=== PATIENT | female | born 2000 | race African-American/Black ===

== ENCOUNTER 2023-01-14 13:55 | Emergency (ER) | payer MEDICAID ==
[~2023-01-14] VITALS: Ht 172.7 cm; Wt 118.0 kg
[2023-01-14 14:06] VITALS: BP 119/79; PULSE 61; RESP 20; TEMP 98.2; O2SAT 100
[2023-01-14] MEDS ORDERED: EFIN4SOL TP (14:17)
[2023-01-14] MEDS ORDERED: GUAI-948 MT (14:17)
== END 2023-01-14 15:02 | disposition home or self-care (01) ==
LOC: ER 13:55
DX: B35.1 Tinea unguium (principal); B34.9 Viral infection, unspecified
CPT/HCPCS: 99283

== ENCOUNTER 2023-07-14 02:16 | Emergency (ER) | payer MEDICAID ==
[~2023-07-14] VITALS: Ht 172.7 cm; Wt 117.0 kg
[~2023-07-14 02:16] MED LIST: EFIN4SOL TP; GUAI-948 MT
[2023-07-14 02:47] VITALS: O2SAT 98
[2023-07-14] MEDS ORDERED: SODIUM CHLORIDE 0.9% 1,000 ML IV ONE (03:00)
[2023-07-14 03:31] LABS: BASOPHILS % 0.8 % (0.0-2.0); EOSINOPHILS % 0.8 % (0.0-5.0); HEMATOCRIT. 37.5 % (36.0-48.0); HEMOGLOBIN. 12.6 g/dL (12.0-16.0); LYMPHOCYTES % 37.7 % (20.0-50.0); MEAN CORPUSCULAR HEMOGLOBIN 30.5 pg (28.0-32.0); MEAN CORPUSCULAR HGB CONC 33.7 g/dL (31.0-37.0); MEAN CORPUSCULAR VOLUME 90.4 fL (81.0-99.0); MEAN PLATELET VOLUME 8.8 fl (7.4-10.4); MONOCYTES % 5.1 % (2.0-8.0); NEUTROPHILS % 55.6 % (40.0-76.0); PLATELET 231 x1000/uL (130-400); RED BLOOD CELL COUNT 4.15 mill/uL (4.2-5.4); RED CELL DISTRIBUTION WIDTH 12.8 % (11.6-14.6); WHITE BLOOD COUNT 9.6 x1000/uL (4.5-11.0)
[2023-07-14 03:39] LABS: PROTHROMBIN TIME 10.7 sec (9.6-11.0)
[2023-07-14 03:45] LABS: ALANINE AMINOTRANSFERASE 15 IU/L (10-49); ALBUMIN 4.3 g/dL (3.2-4.8); ASPARTATE AMINOTRANSFERASE 17 IU/L (<34); BILIRUBIN TOTAL 0.5 mg/dL (0.1-1.0); CALCIUM 9.2 mg/dL (8.7-10.4); CARBON DIOXIDE 24 mEq/L (21-32); CHLORIDE 106 mEq/L (98-107); CREATININE 0.8 mg/dL (0.6-1.0); GLUCOSE 98 mg/dL (70-105); POTASSIUM 3.3 mEq/L (3.5-5.1); PROTEIN TOTAL 7.2 g/dL (6.0-8.3); SODIUM 137 mEq/L (136-145); UREA NITROGEN BLOOD 8 mg/dL (9-23)
[2023-07-14 04:19] LABS: CLARITY URINE CLOUDY (CLEAR); COLOR URINE DARK YELLOW (YELLOW); GLUCOSE URINE NEGATIVE (NEGATIVE); KETONES URINE TRACE (NEGATIVE); LEUKOCYTE ESTERASE URINE NEGATIVE (NEGATIVE); NITRITE URINE NEGATIVE (NEGATIVE); OCCULT BLOOD URINE 2+ (NEGATIVE); PH URINE 5.5 (4.5-8.0); PROTEIN URINE 1+ (NEGATIVE); SPECIFIC GRAVITY URINE 1.033 (1.005-1.030)
[2023-07-14 04:29] LABS: HCG SCREEN POSITIVE
[2023-07-14 05:33] VITALS: BP 111/67; PULSE 75; RESP 16; TEMP 98.7
[2023-07-14 07:13] LABS: SQUAMOUS EPITHELIAL CELL URINE 1+ /lpf (RARE/1+)
[2023-07-14 07:15] LABS: RBC URINE 0-2 /hpf (0-2); WBC URINE 0-2 /hpf (0-2)
[2023-07-14 07:16] LABS: BACTERIA URINE 1+
== END 2023-07-14 05:44 | disposition home or self-care (01) ==
LOC: ER 02:52
DX: O20.0 Threatened abortion (principal); Z98.890 Other specified postprocedural states
CPT/HCPCS: 80053; 81003; 84703; 84702; 85025; 85610; 86850; 86900; 86901; 36415; 76801; 76817; 96360; 99284; Z7610